=== PATIENT | male | born 1995 | race African-American/Black ===

== ENCOUNTER → 2023-02-09 | Outpatient (CLI) | payer OTHER | END | disposition home or self-care (01) | LOC: RADPV 09:59 | PROVIDERS: ATTEND Chiropractor | DX: T14.8XXA Other injury of unspecified body region, initial encounter (principal); I08.1 Rheumatic disorders of both mitral and tricuspid valves; R00.0 Tachycardia, unspecified; I25.2 Old myocardial infarction; R94.31 Abnormal electrocardiogram [ECG] [EKG]; M79.89 Other specified soft tissue disorders; J98.4 Other disorders of lung; R07.9 Chest pain, unspecified; I50.9 Heart failure, unspecified | CPT/HCPCS: 71046; 93005; 93306 ==